=== PATIENT | female | born 1990 | race Caucasian/White ===

== ENCOUNTER → 2018-01-14 | Outpatient (CLI) | payer OTHER ==
--- NOTE | 2018-01-14 13:23 | XR ---
Right foot HISTORY: Trauma and pain 3 views of the right foot Bone mineralization, joint spaces and alignment are maintained. IMPRESSION: No acute fracture or dislocation is evident.
== END | disposition home or self-care (01) ==
LOC: RADXRMAIN 10:31
PROVIDERS: ATTEND Emergency Medicine
DX: S90.31XA Contusion of right foot, initial encounter (principal)

== ENCOUNTER → 2018-01-22 | Outpatient (CLI) | payer OTHER ==
--- NOTE | 2018-01-22 17:31 | XR ---
EXAMINATION TYPE: XR toes RT DATE OF EXAM: 01/22/2018 COMPARISON: NONE HISTORY: Pain and injury TECHNIQUE: 3 views FINDINGS: I see no fracture nor dislocation. Soft tissues appear normal. Joint spaces are normal. IMPRESSION: Normal right big toe exam.
== END | disposition home or self-care (01) ==
LOC: RADXRMAIN 16:58
PROVIDERS: ATTEND Emergency Medicine
DX: S90.31XD Contusion of right foot, subsequent encounter (principal)

== ENCOUNTER → 2018-01-28 | Outpatient (CLI) | payer OTHER ==
--- NOTE | 2018-01-28 17:43 | XR ---
EXAMINATION TYPE: XR toes RT DATE OF EXAM: 01/28/2018 COMPARISON: NONE HISTORY: Hyperextension. Pain. Findings 3 views of the right big toe were obtained and show no fracture nor dislocation. Soft tissues appear normal. Joint spaces are normal. IMPRESSION: Negative right Big toe exam
== END | disposition home or self-care (01) ==
LOC: RADXRMAIN 16:56
PROVIDERS: ATTEND Emergency Medicine
DX: M79.674 Pain in right toe(s) (principal)

== ENCOUNTER → 2019-10-08 | Outpatient (CLI) | payer OTHER | END | disposition home or self-care (01) | LOC: LABWHC1 10:40 | PROVIDERS: ATTEND Family Medicine | DX: R68.83 Chills (without fever) (principal); M79.10 Myalgia, unspecified site; B34.9 Viral infection, unspecified ==

== ENCOUNTER → 2021-09-27 | Outpatient (CLI) | payer BC ==
--- NOTE | 2021-09-27 11:34 | XR ---
EXAMINATION TYPE: XR abdomen 2V DATE OF EXAM: 09/27/2021 COMPARISON: NONE HISTORY: Pain TECHNIQUE: One view abdominal series FINDINGS: The osseous structures are intact. The bowel gas pattern is nonspecific. No suspicious calcification s.. IMPRESSION: 1. Nonspecific abdomen.
--- NOTE | 2021-09-28 08:28 | US ---
EXAMINATION TYPE: US abdomen complete DATE OF EXAM: 09/27/2021 COMPARISON: NONE CLINICAL HISTORY: R10.9 ABDOMINAL PAIN. burning sensation epigastric area for 1.5 weeks. intermittent RUQ pain for 6 months. right flank pain for 2 days. nausea EXAM MEASUREMENTS: Liver Length: 10.9 cm Gallbladder Wall: 0.2 cm CBD: 0.3 cm Spleen: 8.2 cm Right Kidney: 11.0 x 4.5 x 4.8 cm Left Kidney: 11.7 x 5.5 x 4.3 cm technical limitations due to large amount of overlying bowel content Pancreas: Obscured by bowel gas Liver: hyperechoic area left lobe = 3.2 x 1.6 x 3.2cm Gallbladder: non-mobile hyperechoic areas noted = 0.5cm, ?polyps Evidence for sonographic Renae's sign: no CBD: wnl Spleen: wnl Right Kidney: no evidence of hydronephrosis Left Kidney: no evidence of hydronephrosis Upper IVC: wnl Abd Aorta: wnl IMPRESSION: 1. Hyperechoic area within the liver may be related to hemangioma. This could be further evaluated wi CT with contrast hemangioma protocol. 2. Cholelithiasis. Differential diagnosis should include polyps.
== END | disposition home or self-care (01) ==
LOC: RADUSWWP 10:32
PROVIDERS: ATTEND Internal Medicine Geriatric Medicine
DX: R10.9 Unspecified abdominal pain (principal)
CPT/HCPCS: 74019; 76700